=== PATIENT | female | born 1955 | race Caucasian/White ===

== ENCOUNTER 2020-04-12 07:41 | Day surgery (SDC) | payer BC ==
[2020-04-12] MEDS ORDERED: Dextrose 5%-Lactated Ringers 1,000 ML IV SCH (08:30)
[2020-04-12] MEDS ORDERED: Propofol 200 MG/20 ML SDV ONE (08:37)
[2020-04-12] MEDS ORDERED: fentaNYL 100 MCG/2 ML SDV ONE (08:37)
[2020-04-12] MEDS ORDERED: Glycopyrrolate 0.2 MG/ML 2 ML SDV IVPUSH ONE (09:00)
[2020-04-12 11:15] VITALS: BP 139/74; PULSE 46
[2020-04-12] MEDS ORDERED: Iopamidol 612 MG/ML 500 ML Multipack Bottle IV ONE (11:24)
[2020-04-12] MEDS ORDERED: Iopamidol 612 MG/ML 500 ML Multipack Bottle PO ONE (11:24)
--- NOTE | 2020-04-12 14:16 | CT ---
Abdomen Pelvis w Cont CLINICAL HISTORY: Epigastric pain COMPARISON: 2013. TECHNIQUE: Transverse scans were obtained from the base of the lungs to the pubic symphysis following oral contrast and IV infusion of contrast.Auto dosage reduction and iterative reconstructiontechniques employed. FINDINGS: The lung bases show some scattered pleural parenchymal scarring. There is diffuse bilateral bronchiectasis. The liver shows some diffuse intrahepatic biliary dilatation. The common bile duct measures 1.6 cm.. The gallbladder has been removed. The spleen has a normal size and shape. The pancreas shows no mass or inflammatory change. The adrenal glands appear normal bilaterally . The kidneys show no mass or inflammatory change. The ureters have normal course and caliber. The bladder is mildly distended with no filling defects or wall thickening. The aorta has a normal caliber. There is no suspicious retroperitoneal adenopathy. The small intestinal configuration is nonacute. There is moderate retained feces throughout the colon. Abdominal pelvic fat planes and low pelvic side hernandez are well demarcated. IMPRESSION: No mass, adenopathy or inflammatory change There is some biliary dilatation. This is likely related to previous cholecystectomy. Bibasal pleural parenchymal scarring Bilateral bronchiectasis Moderate fecal retention
--- NOTE | 2020-04-16 12:46 | OR ---
DATE OF PROCEDURE: 04/12/2020 SURGEON: Shar Healy MD PREOPERATIVE DIAGNOSIS: Ongoing epigastric pain. POSTOPERATIVE DIAGNOSIS: Mild patchy antral gastritis. OPERATIVE PROCEDURE: Esophagogastroduodenoscopy with antral biopsies for CLOtest. ANESTHESIA: IV sedation. INDICATION FOR PROCEDURE: This is a 65-year-old female presenting with some ongoing epigastric discomfort. This has been resistant to proton pump inhibitor use thus far. She is status post an esophagus procedure several years ago for gastroesophageal reflux disease, but at this point, does not have any significant reflux symptoms, but more persistent epigastric pain. The plan is to proceed with upper GI endoscopy with biopsies as indicated. Potential risks including bleeding and perforation were discussed and the patient wishes to proceed. DETAILS OF PROCEDURE: The patient was taken to the operating room and placed in the left lateral decubitus position. IV sedation was administered, after which the upper GI endoscope was passed orally through the length of the esophagus into the stomach with retroflexion view of the fundus and thereafter through the pyloric channel and into the proximal duodenum. Findings included normal hypopharynx, larynx, upper esophageal sphincter, and esophageal body. At the EG junction, interestingly, at this point, there is no gross inflammation as when passed into the stomach retroflexion confirmed a Shan type effect in terms of rolling over the mucosa at the EG junction with the esophagus sutures still in place. At this point, the esophagus procedure was still functional in terms of anti-reflux effect. Within the stomach, there was some mild patchy antral gastritis. Otherwise, the pyloric channel and duodenum third and fourth portions were both unremarkable. At this point, biopsies were obtained from the antrum and sent for CLOtest for H. pylori. Minimal bleeding from biopsy sites was seen and the procedure then concluded. The patient is already on maximum dose PPI treatment. We will add Carafate 1 g to be taken q.i.d. on an empty stomach to that regimen. The patient overall is symptomatic. This is not all that well explained by the amount of gastritis present. Given this, we obtained a CT scan of the abdomen and pelvis and this was such that it showed no significant abnormalities. The patient will be following up with Edyta Yang PA-C at [facility] in 2 to 3 weeks. Shar Healy MD /[id number]
== END 2020-04-12 11:51 | disposition home or self-care (01) ==
LOC: JP.SDS 07:41
PROVIDERS: ATTEND Surgery
DX: K29.70 Gastritis, unspecified, without bleeding (principal); K21.9 Gastro-esophageal reflux disease without esophagitis
CPT/HCPCS: 36415; 43239; 74177; 82565; 87081; J2704; J3010; J7050; J7121; Q9967

== ENCOUNTER 2020-05-11 07:04 | Day surgery (SDC) | payer BC ==
[2020-05-11] MEDS ORDERED: Propofol 200 MG/20 ML SDV ONE ×2 (07:30→08:59)
[2020-05-11] MEDS ORDERED: fentaNYL 100 MCG/2 ML SDV ONE (07:30)
[2020-05-11] MEDS ORDERED: Midazolam 1 MG/ML 2 ML SDV ONE (07:30)
[2020-05-11] MEDS ORDERED: Dextrose 5%-Lactated Ringers 1,000 ML IV SCH (08:00)
[2020-05-11] MEDS ORDERED: Ondansetron 4 MG/2 ML SDV ONE (08:59)
[2020-05-11 10:17] VITALS: BP 146/67; PULSE 54
--- NOTE | 2020-05-20 10:45 | OR ---
DATE OF PROCEDURE: 05/11/2020 SURGEON: Shar Healy MD PREOPERATIVE DIAGNOSIS: History of abdominal cramping and mucus within the stool. POSTOPERATIVE DIAGNOSIS: Grossly normal colonoscopic examination. OPERATIVE PROCEDURE: Colonoscopy with random colorectal biopsies to rule out microscopic colitis. ANESTHESIA: IV sedation. INDICATION FOR PROCEDURE: This is a 65-year-old female presenting with some ongoing crampy abdominal pain along with some intermittent mucus within the stool. Plan is to proceed with flexible colonoscopy with biopsies and/or polypectomy as indicated. Potential risks including bleeding and perforation were discussed, and the patient wishes to proceed. DETAILS OF PROCEDURE: The patient was taken to the operating room, placed in a left lateral decubitus position. IV sedation was administered after which the digital rectal exam was performed and was unremarkable. Colonoscope was passed into the rectum with retroflexion revealing uncomplicated hemorrhoidal columns. Scope was eventually passed to the cecum. Prep was quite good, although a small liquid stool present. To that level, there were no gross abnormalities noted. There were no areas of diverticular disease, colitis, polyps, or other signs of neoplasia. At this point, multiple biopsies were obtained beginning in the cecum extending down through the rectum and sent for histologic evaluation to rule out any microscopic colitis and the procedure then concluded. The patient was taken to the recovery room in satisfactory condition. Plan will be to have the patient follow up with Edyta Yang PA-C, roughly in one week. Should there not be any satisfactory resolution of this problem, one might consider a Gastroenterology consultation. Shar Healy MD /[id number]
== END 2020-05-11 10:15 | disposition home or self-care (01) ==
LOC: JP.SDS 07:04
PROVIDERS: ATTEND Surgery
DX: R10.9 Unspecified abdominal pain (principal); R19.5 Other fecal abnormalities; K64.9 Unspecified hemorrhoids; I25.10 Atherosclerotic heart disease of native coronary artery without angina pectoris; E78.5 Hyperlipidemia, unspecified; K21.9 Gastro-esophageal reflux disease without esophagitis
CPT/HCPCS: 45378; J2250; J2405; J2704; J3010; J7121

== ENCOUNTER 2020-09-29 14:34 | Emergency (ER) | payer BC, MEDICARE ==
[2020-09-29 15:00] VITALS: BP 141/78; PULSE 76
--- NOTE | 2020-09-29 15:48 | EDM.PDOC ---
ED HPI GENERAL MEDICAL PROBLEM - General Chief Complaint: General Stated Complaint: MEDICAL Time Seen by Provider: 09/29/20 15:34 Source of Information: Reports: Patient, Family, RN Notes Reviewed History Limitations: Reports: No Limitations - History of Present Illness INITIAL COMMENTS - FREE TEXT/NARRATIVE: 65-year-old female presents emergency department with a complaint of chest pain and shortness of breath, this all began over the last 24 hours she believes is related to recently taking a Zofran after taking this medication she has felt short of breath she has felt diaphoretic and now feels she has some chest pain and dyspnea. She recently had a coronary catheterization about 5 years ago which demonstrated she had a 50% blockage in 1 vessel and 30% in a couple other vessels. She is quite anxious - Related Data Allergies Allergy/AdvReac Type Severity Reaction Status Date / Time ondansetron [From Zofran] Allergy Lightheaded Verified 09/29/20 15:16 ness Home Meds: Home Meds Aspirin [Halfprin] 81 mg PO DAILY 06/22/13 [History] Citalopram Hydrobromide [Celexa] 20 mg PO DAILY 06/22/13 [History] Estrogens, Conjugated [Premarin] 0.3 mg PO DAILY 06/22/13 [History] Gabapentin [Neurontin] 600 mg PO BEDTIME 06/22/13 [History] Multivitamin [Multi-Vitamin Daily] 1 each PO DAILY 06/22/13 [History] Omeprazole [Prilosec] 20 mg PO BID 06/22/13 [History] Rosuvastatin [Crestor] 10 mg PO DAILY 06/22/13 [History] valACYclovir [Valtrex] 2,000 mg PO Q12H PRN 08/11/14 [History] ALPRAZolam [Xanax] 1 mg PO BEDTIME 04/09/20 [History] Fluticasone Propionate [Flonase] 2 puff NS DAILY 04/09/20 [History] Iron Vitamin C 1 tab PO DAILY 04/09/20 [History] Pramipexole Di-HCl [Mirapex] 0.125 mg PO BEDTIME 04/09/20 [History] tiZANidine HCl [Zanaflex] 2 mg PO DAILY 04/09/20 [History] traMADol [Ultram] 50 mg PO QID PRN 04/09/20 [History] Sucralfate [Carafate] 1 gm PO QID 05/11/20 [History] Past Medical History HEENT History: Reports: Cataract, Impaired Vision, Sinusitis, Other (See Below) Other HEENT History: decreased hearing left ear Cardiovascular History: Reports: High Cholesterol Gastrointestinal History: Reports: Chronic Constipation, Gastritis, GERD, Hemorrhoids [employer] History: Reports: Musculoskeletal History: Reports: Arthritis, Back Pain, Chronic, Fibromyalgia, Neck Pain, Chronic Neurological History: Reports: Headaches, Chronic - Infectious Disease History Infectious Disease History: Reports: Chicken Pox - Past Surgical History HEENT Surgical History: Reports: Cataract Surgery, Other (See Below) Other HEENT Surgeries/Procedures: mastoidectomy Cardiovascular Surgical History: Reports: None GI Surgical History: Reports: Appendectomy, Cholecystectomy, Colonoscopy, EGD, Esophageal Dilatation, Hernia Repair/Other, Shan Fundoplication, Other (See Below) Other GI Surgeries/Procedures: rectocele Female Surgical History: Reports: Hysterectomy, Oophorectomy, Other (See Below) Other Female Surgeries/Procedures: bladder suspension Neurological Surgical History: Reports: None Musculoskeletal Surgical History: Reports: Arthroscopic Knee, Carpal Tunnel, Knee Replacement Social & Family History - Family History Family Medical History: No Pertinent Family History - Tobacco Use Tobacco Use Status *Q: Never Tobacco User - Caffeine Use Caffeine Use: Reports: Coffee ED ROS GENERAL - Review of Systems Review Of Systems: See Below Constitutional: Reports: Diaphoresis Respiratory: Reports: Shortness of Breath Cardiovascular: Reports: Chest Pain, Dyspnea on Exertion GI/Abdominal: Reports: Nausea ED EXAM, GENERAL - Physical Exam Exam: See Below Exam Limited By: No Limitations General Appearance: Alert, Anxious Respiratory/Chest: No Respiratory Distress, Lungs Clear, Normal Breath Sounds, No Accessory Muscle Use, Chest Non-Tender Cardiovascular: Regular Rate, Rhythm, No Murmur GI/Abdominal: Soft, Non-Tender Extremities: No Pedal Edema Course - Vital Signs Last Recorded V/S: Last Vital Signs Temp 97.8 F 09/29/20 15:32 Pulse 76 09/29/20 15:32 Resp 14 09/29/20 15:32 BP 141/78 H 09/29/20 15:32 Pulse Ox 100 09/29/20 15:32 - Orders/Labs/Meds Orders: Active Orders 24 hr Category Date Time Status Cardiac Monitoring [RC] .As Directed Care 09/29/20 15:44 Active EKG Documentation Completion [RC] ASDIRECTED Care 09/29/20 15:45 Active Chest 2V [CR] Stat Exams 09/29/20 15:45 Taken EKG 12 Lead [EK] Stat Ther 09/29/20 15:45 Ordered Labs: Laboratory Tests 09/29/20 09/29/20 Range/Units 16:20 16:20 WBC 5.0 (4.5-11.0) K/uL RBC 4.64 (3.30-5.50) M/uL Hgb 13.8 (12.0-15.0) g/dL Hct 42.2 (36.0-48.0) % MCV 91 (80-98) fL MCH 30 (27-31) pg MCHC 33 (32-36) % Plt Count 222 (150-400) K/uL Neut % (Auto) 63 (36-66) % Lymph % (Auto) 29 (24-44) % [place] % (Auto) 7 H (2-6) % Eos % (Auto) 1 L (2-4) % Baso % (Auto) 0 (0-1) % Sodium 143 (140-148) mmol/L Potassium 3.3 L (3.6-5.2) mmol/L Chloride 104 (100-108) mmol/L Carbon Dioxide 25 (21-32) mmol/L Anion Gap 17.3 H (5.0-14.0) mmol/L BUN 14 D (7-18) mg/dL Creatinine 0.7 (0.6-1.0) mg/dL Est Cr Clr Drug Dosing 70.76 mL/min Estimated GFR (MDRD) > 60 (>60) Glucose 105 (74-106) mg/dL Calcium 9.9 (8.5-10.1) mg/dL Total Bilirubin 1.3 H (0.2-1.0) mg/dL AST 24 (15-37) U/L ALT 29 (12-78) U/L Alkaline Phosphatase 79 (46-116) U/L Troponin I < 0.017 (0.000-0.056) ng/mL Total Protein 7.2 (6.4-8.2) g/dL Albumin 3.9 (3.4-5.0) g/dL Globulin 3.3 (2.3-3.5) g/dL Albumin/Globulin Ratio 1.2 (1.2-2.2) Departure - Departure Time of Disposition: 17:08 Disposition: Home, Self-Care 01 Condition: Fair Clinical Impression: Atypical chest pain - Discharge Information Instructions: Nonspecific Chest Pain, Adult Referrals: Edyta Yang PA-C [Primary Care Provider] - Forms: ED Department Discharge Additional Instructions: Please follow-up with your primary care next week for further evaluation, call return to the emergency department worsening of symptoms Sepsis Event Note (ED) - Evaluation Sepsis Screening Result: No Definite Risk - Focused Exam Vital Signs: Vital Signs Temp Pulse Resp BP Pulse Ox 09/29/20 15:32 97.8 F 76 14 141/78 H 100 09/29/20 14:59 97.8 F 76 14 141/78 H 100 - My Orders Last 24 Hours: My Active Orders 09/29/20 15:44 Cardiac Monitoring [RC] .As Directed 09/29/20 15:45 EKG Documentation Completion [RC] ASDIRECTED Chest 2V [CR] Stat EKG 12 Lead [EK] Stat - Assessment/Plan Last 24 Hours: My Active Orders 09/29/20 15:44 Cardiac Monitoring [RC] .As Directed 09/29/20 15:45 EKG Documentation Completion [RC] ASDIRECTED Chest 2V [CR] Stat EKG 12 Lead [EK] Stat Plan: Assessment Acuity = acute Site and laterality = atypical chest pain Etiology = unknown Manifestations = none Location of injury = Home Lab values = CBC CMP troponin all within normal limits EKG demonstrates sinus rhythm no ST elevations or depressions, EKG demonstrates normal sinus rhythm at 64, no atrial enlargement, no ventricular enlargement, no axis deviation, no T wave inversions, no significant ST depressions or elevations, no Q waves noted good R wave progression. Chest x-ray I did review films myself I cannot appreciate any acute process, the official read from radiology is pending Plan I did review lab work chest x-ray EKG results with her as she is going to follow-up with her primary care next week and start working on her medications to try and reduce the load This note was dictated using [employer] voice recognition software please call with any questions on syntax or grammar.
--- NOTE | 2020-10-01 09:03 | CR ---
CHEST: 2 view CLINICAL HISTORY:Chest pain COMPARISON:2015 FINDINGS: Lung doan are hyperaerated. There is a pectus deformity. The heart size, pulmonary vascularity and hilar structures are normal. No infiltrate effusion or pneumothorax is seen. There are atherosclerotic changes in the aorta. IMPRESSION: No acute cardiopulmonary process Lungs are hyperaerated exaggerated by pectus deformity
== END 2020-09-29 17:37 | disposition home or self-care (01) ==
LOC: JP.ED 14:34
DX: R07.89 Other chest pain (principal); E78.00 Pure hypercholesterolemia, unspecified; K21.9 Gastro-esophageal reflux disease without esophagitis; M19.90 Unspecified osteoarthritis, unspecified site; Z88.8 Allergy status to other drugs, medicaments and biological substances; Z79.82 Long term (current) use of aspirin; Z79.899 Other long term (current) drug therapy
CPT/HCPCS: 36415; 71046; 71046-26; 80053; 84484; 85025; 93005; 99284; 99285-25